=== PATIENT | female | born 1995 | race African-American/Black ===

== ENCOUNTER 2018-06-06 23:23 | Emergency (ER) | payer MEDICAID ==
[~2018-06-06] VITALS: Ht 172.7 cm; Wt 52.0 kg
[2018-06-07] MEDS ORDERED: SODIUM CHLORIDE 0.9% 1,000 ML IV ONE ×2 (01:59→05:04)
[2018-06-07] MEDS ORDERED: ONDANSETRON HCL 4MG/2ML INJ IV STA (01:59)
[2018-06-07 02:57] LABS: CLARITY URINE CLEAR (CLEAR); COLOR URINE YELLOW (YELLOW); KETONES URINE NEGATIVE (NEGATIVE); LEUKOCYTE ESTERASE URINE NEGATIVE (NEGATIVE); NITRITE URINE NEGATIVE (NEGATIVE); OCCULT BLOOD URINE NEGATIVE (NEGATIVE); PH URINE 7.5 (4.5-8.0); PROTEIN URINE NEGATIVE (NEGATIVE); SPECIFIC GRAVITY URINE 1.011 (1.005-1.030); UROBILINOGEN URINE 0.2 E.U./dL (0.2-1.0)
[2018-06-07 03:01] LABS: HEMOGLOBIN. 12.6 g/dL (12.0-16.0); MEAN CORPUSCULAR HEMOGLOBIN 31.4 pg (28.0-32.0); MEAN CORPUSCULAR VOLUME 92.2 fL (81.0-99.0); MEAN PLATELET VOLUME 7.9 fl (7.4-10.4); PLATELET 227 x1000/uL (130-400); RED BLOOD CELL COUNT 4.02 mill/uL (4.2-5.4); RED CELL DISTRIBUTION WIDTH 13.3 % (11.6-14.6)
[2018-06-07 03:04] LABS: INR 1.1; PROTHROMBIN TIME 10.7 sec (9.1-11.1)
[2018-06-07 03:05] LABS: CHLORIDE 111 mEq/L (98-107); HCG SCREEN NEGATIVE
[2018-06-07 03:11] LABS: ETHANOL BLOOD 39 mg/dL
[2018-06-07 03:18] LABS: *AMPHETAMINES SCREEN URINE NEGATIVE (NEGATIVE); *BARBITURATES SCREEN URINE NEGATIVE (NEGATIVE); METHADONE URINE SCREEN NEGATIVE (NEGATIVE)
[2018-06-07 03:19] LABS: OPIATES URINE SCREEN NEGATIVE (NEGATIVE); PHENCYCLIDINE URINE SCREEN NEGATIVE (NEGATIVE)
[2018-06-07 03:21] LABS: *BENZODIAZEPINES SCREEN URINE PRESUMTIVE POSITIVE (NEGATIVE); *COCAINE SCREEN URINE PRESUMTIVE POSITIVE (NEGATIVE); CANNABINOID URINE SCREEN PRESUMTIVE POSITIVE (NEGATIVE)
[2018-06-07] MEDS ORDERED: ONDANSETRON HCL 4MG/2ML INJ IV ONE (05:30)
[2018-06-07] MEDS ORDERED: ACETAMINOPHEN 325MG TABLET PO ONE (06:30)
[2018-06-07] MEDS ORDERED: FAMOTIDINE 20MG/2ML VIAL IV STA (06:40)
[2018-06-07] MEDS ORDERED: MAGNESIUM/ALUMINUM HYDROXIDE/SIMETHICONE 30ML UDC PO STA (06:40)
[2018-06-07 06:44] LABS: PLATELET ESTIMATE NORMAL
[2018-06-07] MEDS ORDERED: METOCLOPRAMIDE HCL 10MG/2ML VIAL IV ONE (07:15)
[2018-06-07 09:38] VITALS: BP 108/60
== END 2018-06-07 09:41 | disposition home or self-care (01) ==
LOC: ER 23:23
DX: R10.84 Generalized abdominal pain (principal); R11.2 Nausea with vomiting, unspecified; F14.10 Cocaine abuse, uncomplicated; F15.10 Other stimulant abuse, uncomplicated; Y90.1 Blood alcohol level of 20-39 mg/100 ml; F10.10 Alcohol abuse, uncomplicated; F12.10 Cannabis abuse, uncomplicated; Z71.51 Drug abuse counseling and surveillance of drug abuser; F17.210 Nicotine dependence, cigarettes, uncomplicated
CPT/HCPCS: 36415; 74176; 80053; 80305; 81003; 81025; 83690; 84703; 85025; 85610; 93005; 96361; 96374; 96375; 96376; 99285; G0482; J2405; J2765; J3490; J7030; Z7610

== ENCOUNTER 2020-12-02 18:41 | Emergency (ER) | payer MEDICAID, OTHER ==
[~2020-12-02] VITALS: Ht 160 cm; Wt 52.3 kg
[2020-12-02] MEDS ORDERED: ONDANSETRON HCL 4MG/2ML INJ IV STA ×2 (19:28→22:25)
[2020-12-02] MEDS ORDERED: MAGNESIUM/ALUMINUM HYDROXIDE/SIMETHICONE 30ML UDC PO STA (19:28)
[2020-12-02] MEDS ORDERED: ACETAMINOPHEN 500MG TABLET PO ONE (19:30)
[2020-12-02] MEDS ORDERED: SODIUM CHLORIDE 0.9% 1,000 ML IV ONE ×2 (19:30→22:30)
[2020-12-02 20:14] LABS: BASOPHILS % 0.2 % (0.0-2.0); HEMATOCRIT. 40.3 % (36.0-48.0); HEMOGLOBIN. 13.5 g/dL (12.0-16.0); LYMPHOCYTES % 11.3 % (20.0-50.0); MEAN CORPUSCULAR VOLUME 92.9 fL (81.0-99.0); MEAN PLATELET VOLUME 8.7 fl (7.4-10.4); MONOCYTES % 8.2 % (2.0-8.0); NEUTROPHILS % 80.3 % (40.0-76.0); PLATELET 190 x1000/uL (130-400); RED BLOOD CELL COUNT 4.34 mill/uL (4.2-5.4)
[2020-12-02 20:15] LABS: CHLORIDE 105 mEq/L (98-107)
[2020-12-02 20:19] LABS: PROTHROMBIN TIME 10.8 sec (9.6-11.0)
[2020-12-02 20:25] LABS: HCG SCREEN NEGATIVE
[2020-12-02 23:41] VITALS: BP 102/70
== END 2020-12-02 23:45 | disposition home or self-care (01) ==
LOC: ER 18:41
DX: R10.31 Right lower quadrant pain (principal); F10.129 Alcohol abuse with intoxication, unspecified; Y90.0 Blood alcohol level of less than 20 mg/100 ml; Z88.0 Allergy status to penicillin; Z20.822 Contact with and (suspected) exposure to COVID-19
CPT/HCPCS: 36415; 80053; 83690; 84703; 85025; 85610; 93005; 96361; 96374; 99283; C9803; J2405; J7030; U0003

== ENCOUNTER 2021-06-22 15:17 | Emergency (ER) | payer OTHER ==
[~2021-06-22] VITALS: Ht 160 cm; Wt 56.0 kg
[2021-06-22 17:31] LABS: BASOPHILS % 0.2 % (0.0-2.0); EOSINOPHILS % 0.1 % (0.0-5.0); HEMATOCRIT. 38.7 % (36.0-48.0); HEMOGLOBIN. 13.3 g/dL (12.0-16.0); LYMPHOCYTES % 10.6 % (20.0-50.0); MEAN CORPUSCULAR HEMOGLOBIN 31.6 pg (28.0-32.0); MEAN CORPUSCULAR VOLUME 91.9 fL (81.0-99.0); MEAN PLATELET VOLUME 7.9 fl (7.4-10.4); MONOCYTES % 4.1 % (2.0-8.0); PLATELET 249 x1000/uL (130-400); RED CELL DISTRIBUTION WIDTH 13.7 % (11.6-14.6)
[2021-06-22 17:38] LABS: CHLORIDE 109 mEq/L (98-107)
[2021-06-22 17:44] LABS: HCG SCREEN NEGATIVE
[2021-06-22 20:29] LABS: CLARITY URINE CLOUDY (CLEAR); COLOR URINE YELLOW (YELLOW); KETONES URINE 2+ (NEGATIVE); LEUKOCYTE ESTERASE URINE NEGATIVE (NEGATIVE); NITRITE URINE NEGATIVE (NEGATIVE); OCCULT BLOOD URINE NEGATIVE (NEGATIVE); PROTEIN URINE TRACE (NEGATIVE)
[2021-06-22 20:39] LABS: *AMPHETAMINES SCREEN URINE NEGATIVE (NEGATIVE); *BARBITURATES SCREEN URINE NEGATIVE (NEGATIVE); *BENZODIAZEPINES SCREEN URINE NEGATIVE (NEGATIVE); *COCAINE SCREEN URINE NEGATIVE (NEGATIVE); METHADONE URINE SCREEN NEGATIVE (NEGATIVE)
[2021-06-22 20:40] LABS: OPIATES URINE SCREEN NEGATIVE (NEGATIVE); PHENCYCLIDINE URINE SCREEN NEGATIVE (NEGATIVE)
[2021-06-22 20:44] LABS: CANNABINOID URINE SCREEN PRESUMTIVE POSITIVE (NEGATIVE)
[2021-06-22] MEDS ORDERED: HYDROCODONE/ACETAMINOPHEN 5/325MG TABLET PO PRN (21:15)
[2021-06-22 23:19] VITALS: BP 100/65
[2021-06-26 09:11] LABS: NEISSERIA GONORRHOEAE NAA Negative (Negative)
== END 2021-06-22 23:59 | disposition home or self-care (01) ==
LOC: ER 15:17
DX: R10.9 Unspecified abdominal pain (principal); F12.10 Cannabis abuse, uncomplicated; Z88.0 Allergy status to penicillin; Z98.890 Other specified postprocedural states
CPT/HCPCS: 36415; 76830; 76856; 80048; 80305; 81003; 81025; 84703; 85025; 87491; 87591; 99284

== ENCOUNTER 2023-05-12 18:13 | Inpatient (IN) | payer OTHER ==
[~2023-05-12] VITALS: Ht 160 cm; Wt 45.4 kg
[2023-05-12] MEDS ORDERED: SODIUM CHLORIDE 0.9% 1,000 ML IV ONE ×2 (19:00→20:15)
[2023-05-12] MEDS ORDERED: ONDANSETRON HCL 4MG/2ML INJ IV ONE ×2 (19:00→20:15)
[2023-05-12 19:05] LABS: BASOPHILS % 0.4 % (0.0-2.0); HEMATOCRIT. 33.4 % (36.0-48.0); HEMOGLOBIN. 11.6 g/dL (12.0-16.0); LYMPHOCYTES % 8.1 % (20.0-50.0); MEAN CORPUSCULAR HEMOGLOBIN 31.3 pg (28.0-32.0); MEAN CORPUSCULAR VOLUME 90.3 fL (81.0-99.0); MEAN PLATELET VOLUME 7.5 fl (7.4-10.4); MONOCYTES % 5.2 % (2.0-8.0); NEUTROPHILS % 86.3 % (40.0-76.0); PLATELET 264 x1000/uL (130-400); RED CELL DISTRIBUTION WIDTH 13.2 % (11.6-14.6)
[2023-05-12 19:20] LABS: CHLORIDE 105 mEq/L (98-107)
[2023-05-12 19:27] LABS: PARTIAL THROMBOPLASTIN TIME 24.5 sec (23.4-31.0); PROTHROMBIN TIME 10.3 sec (9.6-11.0)
[2023-05-12 19:44] LABS: B-HCG QUANTITATIVE 47560 mIU/mL (<3)
[2023-05-12] MEDS ORDERED: ACETAMINOPHEN 325MG TABLET PO ONE (20:15)
[2023-05-12] MEDS ORDERED: POTASSIUM CHLORIDE 20MEQ TABLET SR PO ONE (21:00)
[2023-05-12] MEDS ORDERED: NITROFURANTOIN 100MG M/M CAPSULE PO ONE (22:30)
[2023-05-12 23:25] LABS: CLARITY URINE CLEAR (CLEAR); COLOR URINE YELLOW (YELLOW); KETONES URINE 4+ (NEGATIVE); LEUKOCYTE ESTERASE URINE NEGATIVE (NEGATIVE); NITRITE URINE NEGATIVE (NEGATIVE); OCCULT BLOOD URINE NEGATIVE (NEGATIVE); PROTEIN URINE 1+ (NEGATIVE); SPECIFIC GRAVITY URINE 1.028 (1.005-1.030)
[2023-05-12] MEDS ORDERED: DIPHENHYDRAMINE 50MG/ML VIAL IV PRN (23:45)
[2023-05-12] MEDS ORDERED: DEXT 5%/0.45% NACL 1000ML 1,000 ML IV SCH (23:45)
[2023-05-13] MEDS: ONDANSETRON HCL 4MG/2ML INJ IV PRN ×2 (00:46→15:38)
[2023-05-13] MEDS ORDERED: METOCLOPRAMIDE 10MG/10 ML UDC PO NR (01:00)
[2023-05-13] MEDS ORDERED: MVI, ADULT NO.1 10 ML, FOLIC ACID 1 MG, THIAMINE HCL 100 MG in SODIUM CHLORIDE 0.9% 1,0... IV SCH ×4 (01:00)
[2023-05-13 01:14] VITALS: BP 141/65; PULSE 78; RESP 20; TEMP 98.1
[2023-05-13] MEDS: SODIUM CHL 0.45% + KCL 20MEQ/L 1,000 ML IV SCH ×2 (01:30→10:19)
[2023-05-13] MEDS ORDERED: MORPHINE SULFATE 2 MG/ML CPJ (NOT FOR IM USE) IV NR (02:15)
[2023-05-13 04:00] VITALS: BP 91/50; PULSE 65; RESP 19; TEMP 97.9
[2023-05-13 08:00] VITALS: BP 98/54; PULSE 66; RESP 16; TEMP 98.4
[2023-05-13] MEDS: MORPHINE SULFATE 2 MG/ML CPJ (NOT FOR IM USE) IV PRN ×3 (11:30→20:49)
[2023-05-13 12:00] VITALS: BP 117/59; PULSE 69; RESP 18; TEMP 98.2
[2023-05-13] MEDS: SUCRALFATE 1 G/10 ML UDC PO SCH ×3 (12:20→21:00)
[2023-05-13 16:00] VITALS: BP 100/70; PULSE 88; RESP 18; TEMP 98
[2023-05-13 20:00] VITALS: BP 96/45; PULSE 62; RESP 18; TEMP 98.2
[2023-05-14] VITALS: BP 114/66; PULSE 78; RESP 20; TEMP 98.7
[2023-05-14] MEDS: MORPHINE SULFATE 2 MG/ML CPJ (NOT FOR IM USE) IV PRN ×4 (01:32→21:49)
[2023-05-14] MEDS: ONDANSETRON HCL 4MG/2ML INJ IV PRN ×3 (01:37→21:49)
[2023-05-14 04:00] VITALS: BP 117/61; PULSE 58; RESP 20; TEMP 98.5
[2023-05-14 08:00] VITALS: BP 134/68; PULSE 66; RESP 19; TEMP 97.5
[2023-05-14] MEDS ORDERED: POTASSIUM CHLORIDE 20MEQ TABLET SR PO NR (08:00)
[2023-05-14] MEDS: SUCRALFATE 1 G/10 ML UDC PO SCH ×4 (08:59→21:48)
[2023-05-14] MEDS ORDERED: POTASSIUM CHLORIDE 20MEQ TABLET SR PO SCH (09:00)
[2023-05-14 12:00] VITALS: BP 117/56; PULSE 74; RESP 18; TEMP 97.7
[2023-05-14] MEDS: LACTATED RINGERS 1,000 ML IV SCH (14:00)
[2023-05-14 16:00] VITALS: BP 124/62; PULSE 60; RESP 19; TEMP 97.8
[2023-05-14] MEDS ORDERED: NALOXONE HCL 0.4MG/ML VIAL IV PRN (17:15)
[2023-05-14 20:00] VITALS: BP 111/62; PULSE 66; RESP 20; TEMP 97.9
[2023-05-14] MEDS: ZOLPIDEM TARTRATE 5MG TABLET PO PRN (21:48)
[2023-05-15] VITALS: BP 121/78; PULSE 69; RESP 20; TEMP 98.6
[2023-05-15] MEDS: MORPHINE SULFATE 2 MG/ML CPJ (NOT FOR IM USE) IV PRN (02:23)
[2023-05-15] MEDS: LACTATED RINGERS 1,000 ML IV SCH ×4 (02:32→21:23)
[2023-05-15] MEDS: ONDANSETRON HCL 4MG/2ML INJ IV PRN (02:34)
[2023-05-15 04:00] VITALS: BP 126/57; PULSE 56; RESP 18; TEMP 97.9
[2023-05-15] MEDS: SUCRALFATE 1 G/10 ML UDC PO SCH ×2 (07:03→20:15)
[2023-05-15 08:00] VITALS: BP 107/54; PULSE 69; RESP 18; TEMP 98.4
[2023-05-15 12:00] VITALS: BP 112/59; PULSE 59; RESP 19; TEMP 98.4
[2023-05-15 16:00] VITALS: BP 118/68; PULSE 63; RESP 18; TEMP 98.6
[2023-05-15 17:33] LABS: BASOPHILS % 0.1 % (0.0-2.0); EOSINOPHILS % 0.2 % (0.0-5.0); HEMATOCRIT. 31.3 % (36.0-48.0); HEMOGLOBIN. 10.8 g/dL (12.0-16.0); LYMPHOCYTES % 8.9 % (20.0-50.0); MEAN CORPUSCULAR HEMOGLOBIN 31.5 pg (28.0-32.0); MEAN CORPUSCULAR VOLUME 91.6 fL (81.0-99.0); MEAN PLATELET VOLUME 8.3 fl (7.4-10.4); MONOCYTES % 6.8 % (2.0-8.0); PLATELET 237 x1000/uL (130-400); RED BLOOD CELL COUNT 3.42 mill/uL (4.2-5.4)
[2023-05-15 17:42] LABS: CHLORIDE 104 mEq/L (98-107)
[2023-05-15 20:00] VITALS: BP 111/60; PULSE 65; RESP 18; TEMP 100.8
[2023-05-15] MEDS: ZOLPIDEM TARTRATE 5MG TABLET PO PRN (20:16)
[2023-05-15] MEDS: ACETAMINOPHEN 325MG TABLET PO PRN (20:16)
[2023-05-16 04:00] VITALS: RESP 18
[2023-05-16] MEDS: ONDANSETRON HCL 4MG/2ML INJ IV PRN (04:03)
[2023-05-16] MEDS: LACTATED RINGERS 1,000 ML IV SCH ×3 (06:17→23:51)
[2023-05-16] MEDS: SUCRALFATE 1 G/10 ML UDC PO SCH ×4 (07:01→20:03)
[2023-05-16 08:00] VITALS: BP 100/49; PULSE 63; RESP 18; TEMP 99
[2023-05-16] MEDS: ONDANSETRON HCL 4MG/2ML INJ IV SCH ×4 (08:30→23:12)
[2023-05-16] MEDS: POTASSIUM CHLORIDE 20MEQ TABLET SR PO SCH (10:00)
[2023-05-16 12:00] VITALS: BP 98/47; PULSE 77; RESP 18; TEMP 98.8
[2023-05-16] MEDS: ACETAMINOPHEN 650MG/20.3ML UDC PO PRN ×2 (13:35→22:40)
[2023-05-16] MEDS: ZOLPIDEM TARTRATE 5MG TABLET PO PRN ×2 (15:07→22:40)
[2023-05-16 16:00] VITALS: BP 89/52; PULSE 78; RESP 18; TEMP 98.3
[2023-05-16 20:00] VITALS: BP 112/63; PULSE 75; RESP 20; TEMP 99.1
[2023-05-17 00:57] VITALS: BP 117/63; PULSE 90; RESP 18; TEMP 97.9
[2023-05-17 04:00] VITALS: BP 101/54; PULSE 89; RESP 17; TEMP 98
[2023-05-17] MEDS: LACTATED RINGERS 1,000 ML IV SCH (06:00)
[2023-05-17] MEDS: ONDANSETRON HCL 4MG/2ML INJ IV SCH (06:22)
[2023-05-17] MEDS: SUCRALFATE 1 G/10 ML UDC PO SCH ×2 (06:22→12:05)
[2023-05-17 08:00] VITALS: BP 88/57; PULSE 82; RESP 18; TEMP 98.4
[2023-05-17 09:06] LABS: CHLORIDE 106 mEq/L (98-107)
[2023-05-17] MEDS: POTASSIUM CHLORIDE 20MEQ TABLET SR PO SCH (09:23)
[2023-05-17] MEDS: ACETAMINOPHEN 325MG TABLET PO PRN (12:05)
[2023-05-17 12:30] VITALS: BP 105/63; PULSE 82; TEMP 98.5; O2SAT 100
[2023-05-17] MEDS ORDERED: ONDA4TAB50 MT (14:06)
== END 2023-05-17 13:29 | disposition left against medical advice (07) | DRG 566 ==
LOC: ER 18:13 → 6EST 22:32 → EDBEDREQ 22:33 → ENRESERV 23:31
PROVIDERS: ADMIT Obstetrics & Gynecology; ATTEND Obstetrics & Gynecology
DX: O21.1 Hyperemesis gravidarum with metabolic disturbance (principal); O99.282 Endocrine, nutritional and metabolic diseases complicating pregnancy, second trimester; Z3A.14 14 weeks gestation of pregnancy; Z53.29 Procedure and treatment not carried out because of patient's decision for other reasons; Z88.0 Allergy status to penicillin
CPT/HCPCS: 36415; 76805; 80048; 80053; 80076; 81003; 83735; 84443; 84702; 85025; 86850; 86900; 93005; 99285; C1893; J1200; J2270; J2405; J3411; J3480; J3490; J7030; J7120; J8597